=== PATIENT | female | born 1955 | race Caucasian/White ===

== ENCOUNTER 2020-03-16 10:08 | Emergency (ER) | payer BC ==
[~2020-03-16] VITALS: Ht 162.6 cm; Wt 81.6 kg
[2020-03-16 11:44] VITALS: BP 141/56
== END 2020-03-16 11:45 | disposition home or self-care (01) ==
LOC: ER 10:32
DX: S06.0X0A Concussion without loss of consciousness, initial encounter (principal); W01.0XXA Fall on same level from slipping, tripping and stumbling without subsequent striking against object, initial encounter; Y92.008 Other place in unspecified non-institutional (private) residence as the place of occurrence of the external cause; I10 Essential (primary) hypertension; E11.9 Type 2 diabetes mellitus without complications; E78.5 Hyperlipidemia, unspecified
CPT/HCPCS: 70450; 99283